=== PATIENT | female | born 1995 ===

== ENCOUNTER 2017-07-28 01:42 | Emergency (ER) | payer BC ==
[~2017-07-28] VITALS: Ht 162.6 cm; Wt 45.5 kg
[2017-07-28 01:46] VITALS: TEMP 97.9
[2017-07-28] MEDS ORDERED: INDERAL LA 60MG60 MG PO (01:50)
[2017-07-28] MEDS ORDERED: NORGESTIMATE AN1 TAB PO (01:50)
[2017-07-28] MEDS ORDERED: NORCO 325 MG-51 TAB PO (05:11)
[2017-07-28] MEDS ORDERED: CIPRO 250MG TA250 MG PO (05:11)
[2017-07-28 05:42] VITALS: BP 128/81; PULSE 91
== END 2017-07-28 05:42 | disposition home or self-care (01) ==
LOC: COL.ER 01:42
DX: S01.311A Laceration without foreign body of right ear, initial encounter (principal); G43.909 Migraine, unspecified, not intractable, without status migrainosus; W01.198A Fall on same level from slipping, tripping and stumbling with subsequent striking against other object, initial encounter; Y92.009 Unspecified place in unspecified non-institutional (private) residence as the place of occurrence of the external cause